=== PATIENT | male | born 1970 ===

== ENCOUNTER 2016-10-06 14:31 | Emergency (ER) | payer BC ==
--- NOTE | 2016-10-06 15:53 | C.PDOC ---
History Of Present Illness 46 y/o male c/o gradual onset diffuse headache for 6 days. started on saturday. pt took 2 doses of advil 400 mg between sat and with no relief. pt also c/ o bilateral upper shoulder pain and neck pain since saturday as well. pt denies any numbness or tingling. no neck stiffness. no trauma, no fever or chills. no blurry vision. no nausea or vomiting. pt seen by Dr Patino on and started on sumitripan with no relief. Time Seen by Provider: 10/06/16 15:20 Chief Complaint (Nursing): Headache History Per: Patient History/Exam Limitations: no limitations (6) Onset/Duration Of Symptoms: Days Current Symptoms Are (Timing): Still Present Severity: Mild Pain Scale Rating Of: 5 Quality: "Pain" Preceeding Symptoms: denies: Visual Disturbances, Known Migraine Symptoms Associated Symptoms: Other (bilateral neck and shoulder pain). denies: Photophobia, Blurred Vision, Nausea, Vomiting, Extremity Weakness Past Medical History Reviewed: Historical Data, Nursing Documentation, Vital Signs Vital Signs: Last Vital Signs Temp 98.1 F 10/06/16 16:42 Pulse 66 10/06/16 16:42 Resp 18 10/06/16 16:42 BP 118/74 10/06/16 16:42 Pulse Ox 99 10/06/16 16:42 - Medical History PMH: No Chronic Diseases Surgical History: No Surg Hx Family History: States: Unknown Family Hx - Social History Hx Tobacco Use: No Hx Alcohol Use: No Hx Substance Use: No Review Of Systems Constitutional: Negative for: Fever, Chills Eyes: Negative for: Vision Change Respiratory: Negative for: Cough, Shortness of Breath Gastrointestinal: Negative for: Nausea, Vomiting, Abdominal Pain Skin: Negative for: Rash Neurological: Positive for: Headache. Negative for: Weakness, Numbness Physical Exam - Physical Exam Appears: Non-toxic, No Acute Distress Skin: Normal Color, Warm, Dry Head: Atraumatic, Normacephalic Eye(s): bilateral: Normal Inspection, PERRL, EOMI Ear(s): Bilateral: TM Obscured By Wax Neck: No Midline Cervical Tenderness, Paracervical Tenderness (bilateral ), Other (bilateral trapzius tenderness) Cardiovascular: Rhythm Regular, No Murmur Respiratory: Normal Breath Sounds, No Rales, No Rhonchi, No Wheezing Gastrointestinal/Abdominal: Bowel Sounds, Soft, No Tenderness Back: Normal Inspection, No CVA Tenderness, No Vertebral Tenderness Neurological/Psych: Oriented x3, Normal Speech, Normal Cognition, Normal Motor, Normal Sensation ED Course And Treatment O2 Sat by Pulse Oximetry: 98 Medical Decision Making Medical Decision Makin46 y/o healthy male with 6 day hx of diffuse headache with bilateral trapezius and neck pain; will give toradol and re-assess 430 pm pt feeling much better after toradol, will d/c with ibuprofen and f/u with Dr Patino. Disposition Counseled Patient/Family Regarding: Diagnosis, Need For Followup, Rx Given - Disposition Disposition: HOME/ ROUTINE Disposition Time: 16:31 Condition: IMPROVED Additional Instructions: Onton ibuprofeno candy se le receta, cada 6 horas, preferiblemente con comida., Para el dolor en los hombros. Sin levantamiento pesado. Seguimiento con el Dr. Medina en unos saleem. Retirar a la opal de emergencias por cualquier sntoma peor. Prescriptions: Ibuprofen [Motrin] 600 mg PO TID #30 tab Forms: Gen Discharge Inst Georgian Print Language: HAITIAN - Clinical Impression Clinical Impression: Strain of cervical portion of trapezius muscle, Trapezius muscle strain
[2016-10-06 16:42] VITALS: BP 118/74; PULSE 66; RESP 18; TEMP 98.1
[2016-10-06 22:53] VITALS: O2SAT 98
== END 2016-10-06 16:44 | disposition home or self-care (01) ==
LOC: C.ER 14:31
DX: S16.1XXA Strain of muscle, fascia and tendon at neck level, initial encounter (principal); X58.XXXA Exposure to other specified factors, initial encounter
CPT/HCPCS: 96372; 99284; J1885